=== PATIENT | female | born 2000 | race Caucasian/White ===

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

== ENCOUNTER 2021-05-31 08:55 | Emergency (ER) | payer OTHER ==
[~2021-05-31] VITALS: Ht 165.1 cm; Wt 69.9 kg
[~2021-05-31 08:55] MED LIST changes: +CEPH500C16 PO
[2021-05-31 08:57] VITALS: BP 113/71
--- NOTE | 2021-05-31 09:16 | NUR ---
DR. WONG BEDSIDE EVALUATING PT
[2021-05-31] MEDS ORDERED: IBUP-2213 PO (09:26)
[2021-05-31] MEDS ORDERED: CIPR500T4 PO (09:26)
--- NOTE | 2021-05-31 10:10 | NUR ---
Patient discharged with v/s stable. Written and verbal after care instructions given and explained. Patient alert, oriented and verbalized understanding of instructions. Ambulatory with steady gait. All questions addressed prior to discharge. ID band removed. Patient advised to follow up with PMD. Rx of CIPROFLOXACIN,iBUPROFEN given. Patient educated on indication of medication including possible reaction and side effects. Opportunity to ask questions provided and answered.
== END 2021-05-31 10:10 | disposition home or self-care (01) ==
LOC: MED 08:55
DX: N39.0 Urinary tract infection, site not specified (principal); Z79.899 Other long term (current) drug therapy
CPT/HCPCS: 81025; 99283

== ENCOUNTER 2021-07-09 18:32 | Emergency (ER) | payer OTHER ==
[~2021-07-09] VITALS: Ht 165.1 cm; Wt 77.1 kg
[~2021-07-09 18:32] MED LIST changes: +CIPR500T4 PO; +IBUP-2213 PO
[2021-07-09 19:16] VITALS: BP 125/68
--- NOTE | 2021-07-09 19:23 | NUR ---
TO BR FOR UA THEN TO LOBBY FOLLOWING TRIAGE
--- NOTE | 2021-07-09 19:28 | NUR ---
TO BED 2. UA OBTAINED
[2021-07-09] MEDS ORDERED: IBUP-2213 PO (19:51)
[2021-07-09] MEDS ORDERED: CEPH-588 PO (19:51)
[2021-07-09] MEDS ORDERED: PYR100 PO (19:51)
--- NOTE | 2021-07-09 19:55 | NUR ---
21 Y/O FEMALE BIBS, C/O DYSURIA FROM SELF DX UTI X1 WEEK. PT STATES SHE HAS DYSURIA AND GETS UTIS FREQUENTLY AND JUST NEEDS MEDICINE. DENIES N/V/D; SKIN IS PINK/WARM/DRY; AAOX4 WITH EVEN AND STEADY GAIT; LUNGS CLEAR BL; HR EVEN AND REGULAR; PT DENIES ANY FEVER, CP, SOB, OR COUGH AT THIS TIME; VSS; PATIENT POSITIONED FOR COMFORT; HOB ELEVATED; BEDRAILS UP X2; BED DOWN. ER MD MADE AWARE OF PT STATUS. NKA NO MEDS NO PMH
[2021-07-09 20:13] VITALS: BP 125/68
--- NOTE | 2021-07-09 20:14 | NUR ---
Patient discharged with v/s stable. Written and verbal after care instructions for UTI given and explained. Patient alert, oriented and verbalized understanding of instructions. Ambulatory with steady gait. All questions addressed prior to discharge. ID band removed. Patient advised to follow up with PMD. Rx of KEFLEX, IBUPROFEN, AND PYRIDIUM AND given. Patient educated on indication of medication including possible reaction and side effects. Opportunity to ask questions provided and answered. VSS, A/OX4, UNLABORED BREATHING, AMBULATORY, AND CALM DEMAEANOR.
== END 2021-07-09 20:14 | disposition home or self-care (01) ==
LOC: MED 18:32
DX: N39.0 Urinary tract infection, site not specified (principal); R03.0 Elevated blood-pressure reading, without diagnosis of hypertension; Z79.899 Other long term (current) drug therapy
CPT/HCPCS: 81002; 81025; 87086; 87186; 99283

== ENCOUNTER 2022-12-02 23:22 | Emergency (ER) | payer OTHER ==
[~2022-12-02] VITALS: Ht 165.1 cm; Wt 74.8 kg
[~2022-12-02 23:22] MED LIST changes: +CEPH-588 PO; +PYR100 PO
[2022-12-02 23:33] VITALS: BP 105/65; PULSE 60; RESP 16; TEMP 97.4; O2SAT 99
[2022-12-02] MEDS ORDERED: AMOX500C25 PO (23:57)
[2022-12-02] MEDS ORDERED: ACET-8905 PO (23:57)
[2022-12-03 00:02] VITALS: BP 105/65; PULSE 60; RESP 16; TEMP 97.4; O2SAT 99
== END 2022-12-03 00:02 | disposition home or self-care (01) ==
LOC: MED 23:22
DX: K08.89 Other specified disorders of teeth and supporting structures (principal); Z79.899 Other long term (current) drug therapy
CPT/HCPCS: 99283

== ENCOUNTER 2023-10-05 19:33 | Emergency (ER) | payer OTHER ==
[~2023-10-05] VITALS: Ht 165.1 cm; Wt 81.6 kg
[~2023-10-05 19:33] MED LIST changes: +ACET-8905 PO; +AMOX500C25 PO
[2023-10-05 19:50] VITALS: BP 130/86; PULSE 90; RESP 16; TEMP 97.4; O2SAT 100
[2023-10-05 23:25] VITALS: BP 130/86; PULSE 90; RESP 16; TEMP 97.4; O2SAT 100
[2023-10-06] MEDS ORDERED: ERYT5OIN51 OP (13:17)
== END 2023-10-05 20:42 | disposition left against medical advice (07) ==
LOC: MED 19:33
DX: H57.12 Ocular pain, left eye (principal); Z53.21 Procedure and treatment not carried out due to patient leaving prior to being seen by health care provider

== ENCOUNTER 2023-10-06 12:28 | Emergency (ER) | payer OTHER ==
[~2023-10-06] VITALS: Ht 165.1 cm; Wt 79.4 kg
[2023-10-06 12:39] VITALS: BP 115/71; PULSE 55; RESP 18; TEMP 97.9; O2SAT 100
[2023-10-06] MEDS ORDERED: FLUORESCEIN OPTH STRIP 1 MG ONE (12:56)
[2023-10-06] MEDS ORDERED: ERYT5OIN51 OP (13:17)
[2023-10-06 13:24] VITALS: BP 115/71; PULSE 55; RESP 18; TEMP 97.9; O2SAT 100
== END 2023-10-06 13:24 | disposition home or self-care (01) ==
LOC: MED 12:28
DX: H00.015 Hordeolum externum left lower eyelid (principal); H10.9 Unspecified conjunctivitis; Z79.899 Other long term (current) drug therapy
CPT/HCPCS: 99283

== ENCOUNTER 2024-02-06 08:31 | Emergency (ER) | payer OTHER ==
[~2024-02-06] VITALS: Ht 165.1 cm; Wt 81.6 kg
[~2024-02-06 08:31] MED LIST changes: -ACET-10509 PO; +ACET500T99 PO; +ERYT5OIN51 OP
[2024-02-06 08:44] VITALS: BP 119/64; PULSE 63; RESP 18; TEMP 97.6; O2SAT 98
[2024-02-06] MEDS: IBUPROFEN 600 MG TAB PO ONE (09:44)
[2024-02-06] MEDS: ACETAMINOPHEN EXTRA STRENGTH 500 MG TAB PO ONE (09:45)
[2024-02-06] MEDS ORDERED: NAPR-337 PO (11:11)
[2024-02-06 11:28] VITALS: BP 119/64; PULSE 63; RESP 18; TEMP 97.6; O2SAT 98
== END 2024-02-06 11:28 | disposition home or self-care (01) ==
LOC: MED 08:31
DX: M25.532 Pain in left wrist (principal); Z79.899 Other long term (current) drug therapy
CPT/HCPCS: 73110; 99283